=== PATIENT | female | born 1970 | race Caucasian/White ===

== ENCOUNTER 2024-10-30 09:00 | Emergency (ER) | payer OTHER ==
--- OUTSIDE RECORDS SUMMARY | 2024-10-30 09:04 | XMS REPORT | Continuity of Care Document ---
Author Name Unknown Address [address] [facility] [address] [place] [address] [facility] Address [address] [facility] [place] [address] Care Team Providers Care Dyeing Machine Feeder Name Role Phone Irene La Attending Clinician Unavailable GC_GCBZW_Kadiyala_S Attending Clinician Unavaila ble GC_GCBZW_Kadiyala_S Admitting Clinician Unavaila ble Payers Payer Name Policy Type Policy Number Effective Date Expirati on Date Source [facility] [employer] [facility] 53 [id number] [facility] Individual Exchange Benefit Plan [id number] [facility] [id number] [place] [address] [id number] 2020 00:00:00 [facility] Problems Condition Name Condition Details Condition Category Status Onset Date Resolution Date Last Treatment Date Treating Clinician Comments Source Abnormal lateral conjugate gaze Abnormal lateral conjugate gaze Problem [facility] [id number] Gait instabilit y Problem [facility] Hyperglyce francesca due to type 2 diabetes mellitus Type 2 diabetes mellitus with hyperglyce francesca, without long-term current use of insulin Problem [facility] [id number] Vitamin D deficiency Problem [facility] [id number] Mixed hyperlipid emia Problem [facility] [id number] Moderate episode of recurrent major depressive disorder Problem [facility] [id number] Morbid (severe) obesity due to excess calories Problem [facility] [id number] Body mass index [BMI] 45.0-49.9, adult Problem [facility] [id number] Type 2 diabetes mellitus with diabetic polyneurop athy, without long-term current use of insulin Problem [facility] Allergies, Adverse Reactions, Alerts Allergy Name Allergy Type Status Severity Reaction(s) Onset Date Inactive Date Treating Clinician Comments Source Substanc e with 3-hydrox y-3-meth ylglutar yl-coenz yme A reductas e inhibito r mechanis m of action (substan ce) Substanc e with 3-hydrox y-3-meth ylglutar yl-coenz yme A reductas e inhibito r mechanis m of action (substan ce) Active elevated LFTs [facility] Social History Social Habit Start Date Stop Date Quantity Comments Source History of Tobacco Use [facility] Sex Assigned At [facility] Smoking Status Start Date Stop Date Source Former Smoker 2024-10-02 00:00:00 2024-10-02 00:00:00 [facility] Medications Ordered Medication Name Filled Medication Name Start Date Stop Date Current Medication? Ordering Clinician Indication Dosage Frequency Signature (SIG) Comments Components Source Repatha Repatha 2022-09 00:00: 00 No 140mg [facility] Repatha SureClick 140 MG/ML Repatha SureClick 140 MG/ML 2021-09 2- 00:00: 00 03-05 00:00 :00 No Repatha SureClick 140 MG/ML Glucometer n/s Glucometer n/s 2020-09- 00:00: 00 No QD Glucometer n/s metFORMIN HCl ER 750 MG metFORMIN HCl ER 750 MG No BID metFORMIN HCl ER 750 MG Sertraline HCl 100 MG Sertraline HCl 100 MG No QD Sertraline HCl 100 MG Gabapentin 300 MG Gabapentin 300 MG No 1{capsu le} Gabapentin 300 MG Vital Signs Vital Name Observation Time Observation Value Comments S ruperto height 2024-10-06 11:40:00 64 [in_i] Commo n [facility] weight 2024-10-06 11:40:00 246 [lb_av] Comm on [facility] bmi 2024-10-06 11:40:00 42.22 kg/m2 Comm on [facility] height 2024-06-30 12:00:00 64 [in_i] Commo n [facility] weight 2024-06-30 12:00:00 235 [lb_av] Comm on [place] [facility] 2024-06-30 12:00:00 40.33 kg/m2 Comm on [facility] height 2024-06-30 12:00:00 64 [in_i] Commo n [facility] weight 2024-06-30 12:00:00 235 [lb_av] Comm on [facility] bmi 2024-06-30 12:00:00 40.33 kg/m2 Comm on [facility] height 2024-03-24 11:20:00 64 [in_i] Commo n [facility] weight 2024-03-24 11:20:00 224 [lb_av] Comm on [facility] bmi 2024-03-24 11:20:00 38.45 kg/m2 Comm on [facility] height 2024-01-14 08:00:00 64 [in_i] Commo n [facility] weight 2024-01-14 08:00:00 236 [lb_av] Comm on [facility] temperature 2024-01-14 08:00:00 97.1 [degF] Com mon [facility] bmi 2024-01-14 08:00:00 40.5 kg/m2 [facility] oximetry 2024-01-14 08:00:00 97 % [facility] respiratory rate 2024-01-14 08:00:00 16 /min Common [facility] blood pressure systolic 2024-01-14 08:00:00 126 mm[Hg] Common [facility] blood pressure diastolic 2024-01-14 08:00:00 78 mm[Hg] Common [facility] height 2023-12-30 10:00:00 64 [in_i] Commo n [facility] weight 2023-12-30 10:00:00 246 [lb_av] Comm on [facility] bmi 2023-12-30 10:00:00 42.22 kg/m2 Comm on [facility] height 2023-12-10 15:40:00 64 [in_i] Commo n [facility] weight 2023-12-10 15:40:00 248 [lb_av] Comm on [facility] bmi 2023-12-10 15:40:00 42.56 kg/m2 Comm on [facility] height 2023-11-19 08:40:00 64 [in_i] Commo n [facility] weight 2023-11-19 08:40:00 248 [lb_av] Comm on [facility] bmi 2023-11-19 08:40:00 42.56 kg/m2 Comm on [facility] height 2023-09-03 08:20:00 64 [in_i] Commo n [facility] weight 2023-09-03 08:20:00 248 [lb_av] Comm on [facility] temperature 2023-09-03 08:20:00 97.4 [degF] Com mon [facility] bmi 2023-09-03 08:20:00 42.56 kg/m2 Comm on [facility] oximetry 2023-09-03 08:20:00 96 % [facility] respiratory rate 2023-09-03 08:20:00 16 /min [facility] blood pressure systolic 2023-09-03 08:20:00 134 mm[Hg] [facility] blood pressure diastolic 2023-09-03 08:20:00 68 mm[Hg] [facility] height 2023-08-20 08:20:00 64 [in_i] Commo n [facility] weight 2023-08-20 08:20:00 248 [lb_av] Comm on [facility] temperature 2023-08-20 08:20:00 97.5 [degF] Com mon [facility] bmi 2023-08-20 08:20:00 42.56 kg/m2 Comm on [facility] oximetry 2023-08-20 08:20:00 97 % Commo n [facility] respiratory rate 2023-08-20 08:20:00 17 /min [facility] blood pressure systolic 2023-08-20 08:20:00 137 mm[Hg] Common [facility] blood pressure diastolic 2023-08-20 08:20:00 76 mm[Hg] [facility] height 2023-08-14 16:40:00 64 [in_i] Commo n [facility] weight 2023-08-14 16:40:00 248 [lb_av] Comm on [facility] bmi 2023-08-14 16:40:00 42.56 kg/m2 Comm on [facility] height 2023-05-06 09:20:00 64 [in_i] Commo n [facility] weight 2023-05-06 09:20:00 248 [lb_av] Comm on [facility] temperature 2023-05-06 09:20:00 97.5 [degF] Com mon [facility] bmi 2023-05-06 09:20:00 42.56 kg/m2 Comm on [facility] oximetry 2023-05-06 09:20:00 95 % Commo n [facility] respiratory rate 2023-05-06 09:20:00 17 /min [facility] blood pressure systolic 2023-05-06 09:20:00 132 mm[Hg] [facility] blood pressure diastolic 2023-05-06 09:20:00 84 mm[Hg] Common [facility] height 2023-05-02 08:00:00 64 [in_i] Commo n [facility] weight 2023-05-02 08:00:00 248 [lb_av] Comm on [facility] bmi 2023-05-02 08:00:00 42.56 kg/m2 Comm on [facility] height 2023-04-12 10:20:00 64 [in_i] Commo n [facility] weight 2023-04-12 10:20:00 247.2 [lb_av] Co mmon [facility] temperature 2023-04-12 10:20:00 96.5 [degF] Com mon [facility] bmi 2023-04-12 10:20:00 42.43 kg/m2 Comm on [facility] oximetry 2023-04-12 10:20:00 95 % Commo n [facility] respiratory rate 2023-04-12 10:20:00 16 /min [facility] blood pressure systolic 2023-04-12 10:20:00 123 mm[Hg] [facility] blood pressure diastolic 2023-04-12 10:20:00 79 mm[Hg] Common [facility] height 2023-03-12 09:20:00 64 [in_i] Commo n [facility] weight 2023-03-12 09:20:00 245 [lb_av] Comm on [facility] temperature 2023-03-12 09:20:00 97.1 [degF] Com [facility] bmi 2023-03-12 09:20:00 42.05 kg/m2 Comm on [facility] oximetry 2023-03-12 09:20:00 97 % Commo n [facility] respiratory rate 2023-03-12 09:20:00 17 /min Common [facility] blood pressure systolic 2023-03-12 09:20:00 136 mm[Hg] [facility] blood pressure diastolic 2023-03-12 09:20:00 80 mm[Hg] Common [facility] height 2023-01-30 08:00:00 64 [in_i] Commo n [facility] weight 2023-01-30 08:00:00 249 [lb_av] Comm on [facility] temperature 2023-01-30 08:00:00 97.3 [degF] Com [facility] bmi 2023-01-30 08:00:00 42.74 kg/m2 Comm on [facility] oximetry 2023-01-30 08:00:00 96 % Commo n [facility] respiratory rate 2023-01-30 08:00:00 17 /min [facility] blood pressure systolic 2023-01-30 08:00:00 138 mm[Hg] Common [facility] blood pressure diastolic 2023-01-30 08:00:00 82 mm[Hg] [facility] height 2022-11-02 08:00:00 64 [in_i] Commo n [facility] weight 2022-11-02 08:00:00 241.6 [lb_av] Co mmon [facility] temperature 2022-11-02 08:00:00 97.8 [degF] Com mon [facility] bmi 2022-11-02 08:00:00 41.47 kg/m2 Comm on [facility] oximetry 2022-11-02 08:00:00 98 % Commo n [facility] respiratory rate 2022-11-02 08:00:00 17 /min [facility] blood pressure systolic 2022-11-02 08:00:00 132 mm[Hg] [facility] blood pressure diastolic 2022-11-02 08:00:00 76 mm[Hg] Common [facility] height 2022-08-15 16:40:00 64 [in_i] Commo n [facility] weight 2022-08-15 16:40:00 242 [lb_av] Comm on [facility] bmi 2022-08-15 16:40:00 41.53 kg/m2 Comm on [facility] height 2022-04-11 08:20:00 64 [in_i] Commo n [facility] weight 2022-04-11 08:20:00 242 [lb_av] Comm on [facility] temperature 2022-04-11 08:20:00 97.9 [degF] Com mon [facility] bmi 2022-04-11 08:20:00 41.53 kg/m2 Comm on [facility] oximetry 2022-04-11 08:20:00 95 % Commo n [facility] respiratory rate 2022-04-11 08:20:00 17 /min [facility] blood pressure systolic 2022-04-11 08:20:00 128 mm[Hg] Common [facility] blood pressure diastolic 2022-04-11 08:20:00 72 mm[Hg] Common [facility] height 2022-02-21 14:40:00 64 [in_i] Commo n [facility] weight 2022-02-21 14:40:00 246 [lb_av] Comm on [facility] temperature 2022-02-21 14:40:00 97.8 [degF] Com mon [facility] bmi 2022-02-21 14:40:00 42.22 kg/m2 Comm on [facility] oximetry 2022-02-21 14:40:00 92 % Commo n [facility] respiratory rate 2022-02-21 14:40:00 18 /min Common [facility] blood pressure systolic 2022-02-21 14:40:00 136 mm[Hg] [facility] blood pressure diastolic 2022-02-21 14:40:00 82 mm[Hg] [facility] height 2021-11-30 08:40:00 64 [in_i] Commo n [facility] weight 2021-11-30 08:40:00 256.6 [lb_av] Co mmon [facility] temperature 2021-11-30 08:40:00 97.5 [degF] Com mon [facility] bmi 2021-11-30 08:40:00 44.04 kg/m2 Comm on [facility] oximetry 2021-11-30 08:40:00 96 % Commo n [facility] respiratory rate 2021-11-30 08:40:00 18 /min [facility] blood pressure systolic 2021-11-30 08:40:00 119 mm[Hg] [facility] blood pressure diastolic 2021-11-30 08:40:00 52 mm[Hg] Common [facility] height 2021-11-16 08:00:00 64 [in_i] Commo n [facility] weight 2021-11-16 08:00:00 254.2 [lb_av] Co mmon [facility] temperature 2021-11-16 08:00:00 97.9 [degF] Com mon [facility] bmi 2021-11-16 08:00:00 43.63 kg/m2 Comm on [facility] oximetry 2021-11-16 08:00:00 91 % Commo n [facility] respiratory rate 2021-11-16 08:00:00 18 /min [facility] blood pressure systolic 2021-11-16 08:00:00 124 mm[Hg] [facility] blood pressure diastolic 2021-11-16 08:00:00 55 mm[Hg] [facility] Encounters Start Date/Time End Date/Time Encounter Type Admission Type Attending Clinicians Care Facility Care Department Encounter ID Source 2024-10-05 09:48:00 Outpatient La, Irene STLMLC STLMLC [id number] [facility] 2024-10-01 08:11:00 Outpatient La, Irene STLMLC STLMLC [id number] [facility] 2024-06-22 08:47:00 Outpatient La, Irene STLMLC STLMLC [id number] [facility] 2024-01-14 08:12:00 Outpatient La, Irene STLMLC STLMLC [id number] [facility] 2023-05-01 07:39:00 Outpatient La, Irene STLMLC STLMLC [id number] [facility] 2023-04-10 08:12:00 Outpatient La, Irene STLMLC STLMLC [id number] [facility] 2023-03-08 11:39:02 Outpatient La, Irene STLMLC STLMLC [id number] [facility] 2023-01-29 11:23:01 Outpatient La, Irene STLMLC STLMLC [id number] [facility] 2022-11-05 07:57:00 Outpatient LaIrene STEVANLC STLC [id number] [facility] 2022-11-02 07:58:01 Outpatient LaIrene STEVANLC STLMLC [id number] [facility] 2022-10-16 10:44:01 Outpatient LaIrene STEVANLC STLMLC [id number] [facility] 2022-08-14 17:13:01 Outpatient LaIrene STLC STLC [id number] [facility] 2022-08-13 10:10:03 Outpatient LaIrene STLC STLC [id number] [facility] 2022-07-05 10:06:02 Outpatient LaIrene STLC STLC [id number] [facility] 2022-04-12 11:02:02 Outpatient LaIrene STLC STLC [id number] [facility] 2022-04-09 13:07:02 Outpatient LaIrene rosado STLC STLC [id number] [facility] 2021-12-01 11:09:04 Outpatient LaIrene STLC STLC [id number] [facility] 2021-11-16 08:07:03 Outpatient LaIrene STLC STLC [id number] [facility] 2024-10-14 00:00:00 2024-10-14 00:00:00 (TEL) STLMLC STLMLC [id number] [facility] 2024-10-08 00:00:00 2024-10-08 00:00:00 (TEL) STLMLC STLMLC [id number] [facility] 2024-10-07 00:00:00 2024-10-07 00:00:00 (TEL) STLMLC STLMLC [id number] [facility] 2024-10-06 00:00:00 2024-10-06 00:00:00 OFFICE VISIT ESTAB PT LEVEL 4 STLMLC STLMLC [id number] [facility] 2024-10-06 00:00:00 2024-10-06 00:00:00 (TEL) STLMLC STLMLC [id number] [facility] 2024-10-06 00:00:00 2024-10-06 00:00:00 (TEL) STLMLC STLMLC [id number] [facility] 2024-10-06 00:00:00 2024-10-06 00:00:00 (TEL) STLMLC STLMLC [id number] [facility] 2024-07-06 00:00:00 2024-07-06 00:00:00 (TEL) STLMLC STLMLC [id number] [facility] 2024-06-30 00:00:00 2024-06-30 00:00:00 OFFICE VISIT ESTAB PT LEVEL 4 STLMLC STLMLC [id number] [facility] 2024-06-30 00:00:00 2024-06-30 00:00:00 (TEL) STLMLC STLMLC [id number] [facility] 2024-03-24 00:00:00 2024-03-24 00:00:00 OFFICE VISIT ESTAB PT LEVEL 4 STLMLC STLMLC [id number] [facility] 2024-02-26 00:00:00 2024-02-26 00:00:00 (TEL) STLMLC STLMLC [id number] [facility] 2024-01-14 00:00:00 2024-01-14 00:00:00 OFFICE VISIT ESTAB PT LEVEL 4 STLMLC STLMLC [id number] [facility] 2023-12-30 00:00:00 2023-12-30 00:00:00 (TEL) STLMLC STLMLC [id number] [facility] 2023-12-30 00:00:00 2023-12-30 00:00:00 OFFICE VISIT ESTAB PT LEVEL 3 STLMLC STLMLC [id number] [facility] 2023-12-10 00:00:00 2023-12-10 00:00:00 OFFICE VISIT ESTAB PT LEVEL 4 STLMLC STLMLC [id number] [facility] 2023-11-19 00:00:00 2023-11-19 00:00:00 OFFICE VISIT ESTAB PT LEVEL 3 STLMLC STLMLC [id number] [facility] 2023-11-18 00:00:00 2023-11-18 00:00:00 (TEL) STLMLC STLMLC [id number] [facility] 2023-09-03 00:00:00 2023-09-03 00:00:00 OFFICE VISIT ESTAB PT LEVEL 2 STLMLC STLMLC [id number] [facility] 2023-08-21 00:00:00 2023-08-21 00:00:00 Outpatient GC_GCBZW_Ka diyala_S PRIV PRIV [id number] [facility] 2023-08-20 00:00:00 2023-08-20 00:00:00 OFFICE VISIT ESTAB PT LEVEL 2 STLMLC STLMLC [id number] [facility] 2023-08-14 00:00:00 2023-08-14 00:00:00 OFFICE VISIT ESTAB PT LEVEL 4 STLMLC STLMLC [id number] [facility] 2023-07-11 00:00:00 2023-07-11 00:00:00 Outpatient GC_GCBZW_Ka diyala_S PRIV PRIV [id number] [facility] 2023-06-14 00:00:00 2023-06-14 00:00:00 Outpatient GC_GCBZW_Ka diyala_S PRIV PRIV [id number] [facility] 2023-05-06 00:00:00 2023-05-06 00:00:00 OFFICE VISIT ESTAB PT LEVEL 2 STLMLC STLMLC [id number] [facility] 2023-05-02 00:00:00 2023-05-02 00:00:00 OFFICE VISIT ESTAB PT LEVEL 4 STLMLC STLMLC [id number] [facility] 2023-04-25 00:00:00 2023-04-25 00:00:00 Outpatient GC_GCBZW_Ka diyala_S PRIV PRIV [id number] [facility] 2023-04-12 00:00:00 2023-04-12 00:00:00 PREV VISIT EST AGE 40-64 STLMLC STLMLC [id number] [facility] 2023-04-09 00:00:00 2023-04-09 00:00:00 Outpatient GC_GCBZW_Ka diyala_S PRIV PRIV [id number] [facility] 2023-04-09 00:00:00 2023-04-09 00:00:00 Outpatient GC_GCBZW_Ka diyala_S PRIV PRIV [id number] [facility] 2023-04-08 00:00:00 2023-04-08 00:00:00 Outpatient GC_GCBZW_Ka diyala_S PRIV PRIV [id number] [facility] 2023-03-12 00:00:00 2023-03-12 00:00:00 OFFICE VISIT ESTAB PT LEVEL 4 STLMLC STLMLC [id number] [facility] 2023-01-30 00:00:00 2023-01-30 00:00:00 OFFICE VISIT ESTAB PT LEVEL 4 STLMLC STLMLC [id number] [facility] 2023-01-30 00:00:00 2023-01-30 00:00:00 (TEL) STLMLC STLMLC [id number] [facility] 2023-01-30 00:00:00 2023-01-30 00:00:00 (TEL) STLMLC STLMLC [id number] [facility] 2022-11-02 00:00:00 2022-11-02 00:00:00 OFFICE VISIT ESTAB PT LEVEL 4 STLMLC STLMLC [id number] [facility] 2022-10-29 00:00:00 2022-10-29 00:00:00 (TEL) STLMLC STLMLC [id number] [facility] 2022-10-08 00:00:00 2022-10-08 00:00:00 (TEL) STLMLC STLMLC [id number] [facility] 2022-09-04 00:00:00 2022-09-04 00:00:00 (TEL) STLMLC STLMLC [id number] [facility] 2022-08-15 00:00:00 2022-08-15 00:00:00 OFFICE VISIT EST PT LEVEL 3 STLMLC STLMLC [id number] [facility] 2022-04-30 00:00:00 2022-04-30 00:00:00 (TEL) STLMLC STLMLC [id number] [facility] 2022-04-27 00:00:00 2022-04-27 00:00:00 (TEL) STLMLC STLMLC [id number] [facility] 2022-04-11 00:00:00 2022-04-11 00:00:00 (WELLNESS) Wellness Visit STLMLC STLMLC [id number] [facility] 2022-02-21 00:00:00 2022-02-21 00:00:00 OFFICE VISIT ESTAB PT LEVEL 4 STLMLC STLMLC [id number] [facility] 2022-02-21 00:00:00 2022-02-21 00:00:00 (TEL) STLMLC STLMLC [id number] [facility] 2021-11-30 00:00:00 2021-11-30 00:00:00 OFFICE VISIT ESTAB PT LEVEL 4 STLMLC STLMLC [id number] [facility] 2021-11-28 00:00:00 2021-11-28 00:00:00 (TEL) [facility] [id number] [facility] 2021-11-16 00:00:00 2021-11-16 00:00:00 OFFICE VISIT ESTAB PT LEVEL 4 STLMLC STLMLC [id number] [facility] Results Test Description Test Time Test Comments Results Result Co mments Source COMPREHENSIVE METABOLIC [id number] 00:00:00* Test Item Value Reference Range Interpretation Comme nts NUCLEATED RBCS (test code = 62305-9) 0.0 /100 WBC'S See_Comment [Automated message] The system which generated this result transmitted reference range: 0.0 /100 WBC'S. The reference range was not used to interpret this result as normal/abnormal. ABSOLUTE EOSINOPHILS (test code = 20720-6) 0.19 K/UL See_Comment [Automated message] The system which generated this result transmitted reference range: 0.00-0.50 K/UL. The reference range was not used to interpret this result as normal/abnormal. ABSOLUTE LYMPHOCYTES (test code = 52290-7) 2.10 K/UL See_Comment [Automated message] The system which generated this result transmitted reference range: 1.00-4.00 K/UL. The reference range was not used to interpret this result as normal/abnormal. ABSOLUTE MONOCYTES (test code = 78387-4) 0.50 K/UL See_Comment [Automated message] The system which generated this result transmitted reference range: 0.20-1.00 K/UL. The reference range was not used to interpret this result as normal/abnormal. ABSOLUTE NEUTROPHILS (test code = 88487-6) 4.97 K/UL See_Comment [Automated message] The system which generated this result transmitted reference range: 1.50-7.50 K/UL. The reference range was not used to interpret this result as normal/abnormal. BASOPHILS (test code = 24520-9) 0.4 % EOSINOPHILS (test code = 17223-2) 2.4 % HEMATOCRIT (test code = 90455-1) 40.2 % See_Comment [Automated messa ge] The system which generated this result transmitted reference range: 34.0-45.0 %. The reference range was not used to interpret this result as normal/abnormal. HEMOGLOBIN (test code = 718-7) 12.7 G/DL See_Comment [Automated messa ge] The system which generated this result transmitted reference range: 11.5-15.5 G/DL. The reference range was not used to interpret this result as normal/abnormal. LYMPHOCYTES (test code = 63833-9) 26.9 % MCH (test code = 28753-1) 28.0 PG See_Comment [Automated messa ge] The system which generated this result transmitted reference range: 25.0-33.0 PG. The reference range was not used to interpret this result as normal/abnormal. MCHC (test code = 20242-3) 31.6 G/DL See_Comment [Automated messa ge] The system which generated this result transmitted reference range: 31.0-36.0 G/DL. The reference range was not used to interpret this result as normal/abnormal. MCV (test code = 44728-3) 88.5 fL See_Comment [Automated messa ge] The system which generated this result transmitted reference range: 80.0-99.0 fL. The reference range was not used to interpret this result as normal/abnormal. MONOCYTES (test code = 85779-5) 6.4 % NEUTROPHILS (test code = 37896-7) 63.6 % PLATELET COUNT (test code = 71225-1) 192 K/UL See_Comment [Automated messa ge] The system which generated this result transmitted reference range: 130-400 K/UL. The reference range was not used to interpret this result as normal/abnormal. RBC (test code = 51107-3) 4.54 M/UL See_Comment [Automated messa ge] The system which generated this result transmitted reference range: 3.80-5.40 M/UL. The reference range was not used to interpret this result as normal/abnormal. RDW (test code = 82221-9) 13.9 % See_Comment [Automated messa ge] The system which generated this result transmitted reference range: 11.5-15.0 %. The reference range was not used to interpret this result as normal/abnormal. WBC (test code = 00741-4) 7.8 K/UL See_Comment [Automated messa ge] The system which generated this result transmitted reference range: 3.5-11.0 K/UL. The reference range was not used to interpret this result as normal/abnormal. HEMOGLOBIN A1c (test code = 4548-4) 7.2 % See_Comment H [Automated [employer]] The system which generated this result transmitted reference range: 4.2-5.6 %. The reference range was not used to interpret this result as normal/abnormal. VITAMIN D,1,25-DIHYDROXY (test code = 1649-3) 43.6 PG/ML See_Comment [Automated [employer]] The system which generated this result transmitted reference range: 20.0-82.0 PG/ML. The reference range was not used to interpret this result as normal/abnormal. CALC LDL CHOL (test code = 58894-5) 191 MG/DL See_Comment H [Automated [employer]] The system which generated this result transmitted reference range: <100 MG/DL. The reference range was not used to interpret this result as normal/abnormal. CHOLESTEROL (test code = 2093-3) 273 MG/DL See_Comment H [Automated [employer]] The system which generated this result transmitted reference range: <200 MG/DL. The reference range was not used to interpret this result as normal/abnormal. HDL CHOLESTEROL (test code = 2085-9) 46 MG/DL See_Comment [Automated [employer]] The system which generated this result transmitted reference range: >39 MG/DL. The reference range was not used to interpret this result as normal/abnormal. RISK RATIO LDL/HDL (test code = 42542-8) 4.15 RATIO See_Comment H [Automated message] The system which generated this result transmitted reference range: <3.22 RATIO. The reference range was not used to interpret this result as normal/abnormal. TRIGLYCERIDES (test code = 2571-8) 187 MG/DL See_Comment H [Automated [employer]] The system which generated this result transmitted reference range: <150 MG/DL. The reference range was not used to interpret this result as normal/abnormal. ALBUMIN, URINE, RANDOM (test code = 05078-7) 2.2 MG/DL NOT ESTAB MG/DL CALC ALBUMIN/CREAT, RND (test code = 87894-7) 12 MG/G See_Comment [Automated [employer]] The system which generated this result transmitted reference range: <30 MG/G. The reference range was not used to interpret this result as normal/abnormal. CREATININE, URINE, CONC. (test code = 2161-8) 189.1 MG/DL NOT ESTAB MG/DL ALBUMIN (test code = 1751-7) 4.4 G/DL See_Comment [Automated messa ge] The system which generated this result transmitted reference range: 3.5-5.2 G/DL. The reference range was not used to interpret this result as normal/abnormal. ALKALINE PHOSPHATASE (test code = 6768-6) 121 U/L See_Comment [Automated message] The system which generated this result transmitted reference range: 40-133 U/L. The reference range was not used to interpret this result as normal/abnormal. BILIRUBIN, TOTAL (test code = 1975-2) 0.4 MG/DL See_Comment [Automated messa ge] The system which generated this result transmitted reference range: <=1.2 MG/DL. The reference range was not used to interpret this result as normal/abnormal. BUN (test code = 3094-0) 9 MG/DL See_Comment [Automated messa ge] The system which generated this result transmitted reference range: 6-20 MG/DL. The reference range was not used to interpret this result as normal/abnormal. CALCIUM (test code = 82745-6) 9.7 MG/DL See_Comment [Automated messa ge] The system which generated this result transmitted reference range: 8.5-10.5 MG/DL. The reference range was not used to interpret this result as normal/abnormal. CALC A/G RATIO (test code = 1759-0) 1.5 RATIO See_Comment [Automated messa ge] The system which generated this result transmitted reference range: 1.0-2.6 RATIO. The reference range was not used to interpret this result as normal/abnormal. CALC BUN/CREAT (test code = 3097-3) 11 RATIO See_Comment [Automated messa ge] The system which generated this result transmitted reference range: 6-28 RATIO. The reference range was not used to interpret this result as normal/abnormal. CALC GLOBULIN (test code = 16836-3) 2.9 G/DL See_Comment [Automated messa ge] The system which generated this result transmitted reference range: 1.9-3.7 G/DL. The reference range was not used to interpret this result as normal/abnormal. CARBON DIOXIDE (test code = 1963-8) 30 MEQ/L See_Comment [Automated messa ge] The system which generated this result transmitted reference range: 19-31 MEQ/L. The reference range was not used to interpret this result as normal/abnormal. CHLORIDE (test code = 2075-0) 99 MEQ/L See_Comment [Automated messa ge] The system which generated this result transmitted reference range: 95-107 MEQ/L. The reference range was not used to interpret this result as normal/abnormal. CREATININE (test code = 2160-0) 0.80 MG/DL See_Comment [Automated messa ge] The system which generated this result transmitted reference range: 0.60-1.30 MG/DL. The reference range was not used to interpret this result as normal/abnormal. eGFR (2020 CKD-EPI) (test code = 13065-3) 87 ML/MIN/1.73 See_Comment [Automated message] The system which generated this result transmitted reference range: >60 ML/MIN/1.73. The reference range was not used to interpret this result as normal/abnormal. GLUCOSE (test code = 1558-6) 108 MG/DL See_Comment H [Automated messa ge] The system which generated this result transmitted reference range: 70-99 MG/DL. The reference range was not used to interpret this result as normal/abnormal. POTASSIUM (test code = 2823-3) 4.4 MEQ/L See_Comment [Automated messa ge] The system which generated this result transmitted reference range: 3.5-5.4 MEQ/L. The reference range was not used to interpret this result as normal/abnormal. PROTEIN, TOTAL (test code = 2885-2) 7.3 G/DL See_Comment [Automated messa ge] The system which generated this result transmitted reference range: 6.1-8.3 G/DL. The reference range was not used to interpret this result as normal/abnormal. AST (test code = 1920-8) 16 U/L See_Comment [Automated messa ge] The system which generated this result transmitted reference range: 9-40 U/L. The reference range was not used to interpret this result as normal/abnormal. ALT (test code = 1742-6) 15 U/L See_Comment [Automated messa ge] The system which generated this result transmitted reference range: 5-40 U/L. The reference range was not used to interpret this result as normal/abnormal. SODIUM (test code = 2951-2) 140 MEQ/L See_Comment [Automated messa ge] The system which generated this result transmitted reference range: 133-146 MEQ/L. The reference range was not used to interpret this result as normal/abnormal. CBC W/AUTO [id number] 00:00:00* Test Item Value Reference Range Interpretation Comme nts NUCLEATED RBCS (test code = 10724-1) 0.0 /100 WBC'S See_Comment [Automated messa ge] The system which generated this result transmitted reference range: 0.0 /100 WBC'S. The reference range was not used to interpret this result as normal/abnormal. ABSOLUTE EOSINOPHILS (test code = 33781-9) 0.31 K/UL See_Comment [Automated messa ge] The system which generated this result transmitted reference range: 0.00-0.50 K/UL. The reference range was not used to interpret this result as normal/abnormal. ABSOLUTE LYMPHOCYTES (test code = 66462-1) 1.95 K/UL See_Comment [Automated messa ge] The system which generated this result transmitted reference range: 1.00-4.00 K/UL. The reference range was not used to interpret this result as normal/abnormal. ABSOLUTE MONOCYTES (test code = 59443-8) 0.39 K/UL See_Comment [Automated messa ge] The system which generated this result transmitted reference range: 0.20-1.00 K/UL. The reference range was not used to interpret this result as normal/abnormal. ABSOLUTE NEUTROPHILS (test code = 38335-6) 5.16 K/UL See_Comment [Automated messa ge] The system which generated this result transmitted reference range: 1.50-7.50 K/UL. The reference range was not used to interpret this result as normal/abnormal. BASOPHILS (test code = 42878-7) 0.5 % EOSINOPHILS (test code = 88470-1) 3.9 % HEMATOCRIT (test code = 14694-9) 42.6 % See_Comment [Automated messa ge] The system which generated this result transmitted reference range: 34.0-45.0 %. The reference range was not used to interpret this result as normal/abnormal. HEMOGLOBIN (test code = 718-7) 13.4 G/DL See_Comment [Automated messa ge] The system which generated this result transmitted reference range: 11.5-15.5 G/DL. The reference range was not used to interpret this result as normal/abnormal. LYMPHOCYTES (test code = 23461-9) 24.8 % MCH (test code = 55460-6) 27.9 PG See_Comment [Automated messa ge] The system which generated this result transmitted reference range: 25.0-33.0 PG. The reference range was not used to interpret this result as normal/abnormal. MCHC (test code = 96514-0) 31.5 G/DL See_Comment [Automated messa ge] The system which generated this result transmitted reference range: 31.0-36.0 G/DL. The reference range was not used to interpret this result as normal/abnormal. MCV (test code = 27953-2) 88.6 fL See_Comment [Automated messa ge] The system which generated this result transmitted reference range: 80.0-99.0 fL. The reference range was not used to interpret this result as normal/abnormal. MONOCYTES (test code = 39199-1) 5.0 % NEUTROPHILS (test code = 62338-5) 65.5 % PLATELET COUNT (test code = 84921-8) 162 K/UL See_Comment [Automated messa ge] The system which generated this result transmitted reference range: 130-400 K/UL. The reference range was not used to interpret this result as normal/abnormal. RBC (test code = 83619-3) 4.81 M/UL See_Comment [Automated messa ge] The system which generated this result transmitted reference range: 3.80-5.40 M/UL. The reference range was not used to interpret this result as normal/abnormal. RDW (test code = 72502-2) 14.1 % See_Comment [Automated messa ge] The system which generated this result transmitted reference range: 11.5-15.0 %. The reference range was not used to interpret this result as normal/abnormal. WBC (test code = 28673-2) 7.9 K/UL See_Comment [Automated messa ge] The system which generated this result transmitted reference range: 3.5-11.0 K/UL. The reference range was not used to interpret this result as normal/abnormal. HEMOGLOBIN [id number] 00:00:00* Test Item Value Reference Range Interpretation Comme nts A1C (test code = 4548-4) 7.1 CBC W/AUTO [id number] 00:00:00* Test Item Value Reference Range Interpretation Comme nts NUCLEATED RBCS (test code = 14578-9) 0.0 /100 WBC'S See_Comment [Automated messa ge] The system which generated this result transmitted reference range: 0.0 /100 WBC'S. The reference range was not used to interpret this result as normal/abnormal. ABSOLUTE EOSINOPHILS (test code = 58340-4) 0.16 K/UL See_Comment [Automated messa ge] The system which generated this result transmitted reference range: 0.00-0.50 K/UL. The reference range was not used to interpret this result as normal/abnormal. ABSOLUTE LYMPHOCYTES (test code = 35199-4) 1.69 K/UL See_Comment [Automated messa ge] The system which generated this result transmitted reference range: 1.00-4.00 K/UL. The reference range was not used to interpret this result as normal/abnormal. ABSOLUTE MONOCYTES (test code = 60738-8) 0.42 K/UL See_Comment [Automated messa ge] The system which generated this result transmitted reference range: 0.20-1.00 K/UL. The reference range was not used to interpret this result as normal/abnormal. ABSOLUTE NEUTROPHILS (test code = 52119-1) 3.82 K/UL See_Comment [Automated messa ge] The system which generated this result transmitted reference range: 1.50-7.50 K/UL. The reference range was not used to interpret this result as normal/abnormal. BASOPHILS (test code = 97844-7) 0.6 % EOSINOPHILS (test code = 91240-1) 2.6 % HEMATOCRIT (test code = 99331-8) 43.9 % See_Comment [Automated messa ge] The system which generated this result transmitted reference range: 34.0-45.0 %. The reference range was not used to interpret this result as normal/abnormal. HEMOGLOBIN (test code = 718-7) 14.4 G/DL See_Comment [Automated messa ge] The system which generated this result transmitted reference range: 11.5-15.5 G/DL. The reference range was not used to interpret this result as normal/abnormal. LYMPHOCYTES (test code = 76091-3) 27.4 % MCH (test code = 44686-0) 29.1 PG See_Comment [Automated messa ge] The system which generated this result transmitted reference range: 25.0-33.0 PG. The reference range was not used to interpret this result as normal/abnormal. MCHC (test code = 92351-3) 32.8 G/DL See_Comment [Automated messa ge] The system which generated this result transmitted reference range: 31.0-36.0 G/DL. The reference range was not used to interpret this result as normal/abnormal. MCV (test code = 41345-4) 88.7 fL See_Comment [Automated messa ge] The system which generated this result transmitted reference range: 80.0-99.0 fL. The reference range was not used to interpret this result as normal/abnormal. MONOCYTES (test code = 15757-4) 6.8 % NEUTROPHILS (test code = 28536-9) 62.1 % PLATELET COUNT (test code = 52185-5) 168 K/UL See_Comment [Automated messa ge] The system which generated this result transmitted reference range: 130-400 K/UL. The reference range was not used to interpret this result as normal/abnormal. RBC (test code = 39968-6) 4.95 M/UL See_Comment [Automated messa ge] The system which generated this result transmitted reference range: 3.80-5.40 M/UL. The reference range was not used to interpret this result as normal/abnormal. RDW (test code = 62789-3) 13.4 % See_Comment [Automated messa ge] The system which generated this result transmitted reference range: 11.5-15.0 %. The reference range was not used to interpret this result as normal/abnormal. WBC (test code = 90824-6) 6.2 K/UL See_Comment [Automated messa ge] The system which generated this result transmitted reference range: 3.5-11.0 K/UL. The reference range was not used to interpret this result as normal/abnormal. CBC W/AUTO [id number] 00:00:00* Test Item Value Reference Range Interpretation Comme nts NUCLEATED RBCS (test code = 34686-2) 0.0 /100 WBC'S See_Comment [Automated messa ge] The system which generated this result transmitted reference range: 0.0 /100 WBC'S. The reference range was not used to interpret this result as normal/abnormal. ABSOLUTE EOSINOPHILS (test code = 10445-2) 0.16 K/UL See_Comment [Automated messa ge] The system which generated this result transmitted reference range: 0.00-0.50 K/UL. The reference range was not used to interpret this result as normal/abnormal. ABSOLUTE LYMPHOCYTES (test code = 14623-4) 1.65 K/UL See_Comment [Automated messa ge] The system which generated this result transmitted reference range: 1.00-4.00 K/UL. The reference range was not used to interpret this result as normal/abnormal. ABSOLUTE MONOCYTES (test code = 21812-7) 0.40 K/UL See_Comment [Automated messa ge] The system which generated this result transmitted reference range: 0.20-1.00 K/UL. The reference range was not used to interpret this result as normal/abnormal. ABSOLUTE NEUTROPHILS (test code = 46338-7) 3.41 K/UL See_Comment [Automated messa ge] The system which generated this result transmitted reference range: 1.50-7.50 K/UL. The reference range was not used to interpret this result as normal/abnormal. BASOPHILS (test code = 67423-6) 0.9 % EOSINOPHILS (test code = 30641-8) 2.8 % HEMATOCRIT (test code = 96743-3) 42.5 % See_Comment [Automated messa ge] The system which generated this result transmitted reference range: 34.0-45.0 %. The reference range was not used to interpret this result as normal/abnormal. HEMOGLOBIN (test code = 718-7) 14.2 G/DL See_Comment [Automated messa ge] The system which generated this result transmitted reference range: 11.5-15.5 G/DL. The reference range was not used to interpret this result as normal/abnormal. LYMPHOCYTES (test code = 06999-8) 29.0 % MCH (test code = 52809-1) 28.8 PG See_Comment [Automated messa ge] The system which generated this result transmitted reference range: 25.0-33.0 PG. The reference range was not used to interpret this result as normal/abnormal. MCHC (test code = 11424-4) 33.4 G/DL See_Comment [Automated messa ge] The system which generated this result transmitted reference range: 31.0-36.0 G/DL. The reference range was not used to interpret this result as normal/abnormal. MCV (test code = 14011-2) 86.2 fL See_Comment [Automated messa ge] The system which generated this result transmitted reference range: 80.0-99.0 fL. The reference range was not used to interpret this result as normal/abnormal. MONOCYTES (test code = 79574-3) 7.0 % NEUTROPHILS (test code = 94457-5) 59.9 % PLATELET COUNT (test code = 39527-1) 156 K/UL See_Comment [Automated messa ge] The system which generated this result transmitted reference range: 130-400 K/UL. The reference range was not used to interpret this result as normal/abnormal. RBC (test code = 20453-8) 4.93 M/UL See_Comment [Automated messa ge] The system which generated this result transmitted reference range: 3.80-5.40 M/UL. The reference range was not used to interpret this result as normal/abnormal. RDW (test code = 37381-2) 13.8 % See_Comment [Automated messa ge] The system which generated this result transmitted reference range: 11.5-15.0 %. The reference range was not used to interpret this result as normal/abnormal. WBC (test code = 68893-7) 5.7 K/UL See_Comment [Automated messa ge] The system which generated this result transmitted reference range: 3.5-11.0 K/UL. The reference range was not used to interpret this result as normal/abnormal. HEMOGLOBIN [id number] 00:00:00* Test Item Value Reference Range Interpretation Comme nts A1C (test code = 4548-4) 7.7
[2024-10-30 10:00] LABS: Absolute Eosinophils 0.9 K/uL (0-0.5); Absolute Lymphocytes (CBC) 2.3 K/uL (0.7-4.9); Absolute Monocytes 0.6 K/uL (0.1-1.3); Absolute Neutrophil 7.8 K/uL (1.8-8.0); Basophils % 0.3 % (0-1.3); Eosinophils % 7.7 % (0-4.4); Lymphocytes % 19.4 % (15.3-44.8); MCHC 33.3 g/dL (32.0-36.0); MCV 87.1 fL (80-100); MPV 9.6 fL (7.6-11.3); Monocytes % 5.5 % (3.3-12.3); Neutrophils % 67.1 % (41.7-73.7); Nucleated Red Blood Cells % 0.1 % (0-0); Platelets 197 thou/uL (152-406); RBC Red Blood Cell Count 5.16 M/uL (3.86-4.86); Red Cell Distribution Width 14.5 % (12.1-15.2)
--- NOTE | 2024-10-30 10:07 | RAD REPORT ---
EXAMINATION: CT ABDOMEN AND PELVIS WITH CONTRAST CLINICAL INDICATION: Abdominal pain TECHNIQUE: CT abdomen and pelvis was performed, after the administration of 100 cc Isovue-300.. Sagit olga and coronal reconstructions were obtained. One or more of the following dose reduction techniques were used: Automated exposure control, adjustment of the mA and kV according to patient si ze, and iterative reconstruction. Unless otherwise specified, incidental findings do not require dedicated imaging follow-up. [id number]. Oral contrast was not given which limits evaluation of bowel and appendix. COMPARISON: .None FINDINGS: Liver, spleen, pancreas, and adrenals appear unremarkable. Horseshoe kidney. No hydronephrosis No evidence of diverticulitis. Normal appendix. No adnexal mass : IMPRESSION: No acute abnormality displayed
[2024-10-30] MEDS ORDERED: NA CHLORIDE 0.9% 1,000 ML ONE (10:10)
[2024-10-30 10:17] LABS: Albumin 3.6 g/dL (3.4-5.0); Albumin/Globulin Ratio 0.8 (1.1-1.8); Anion Gap 7.6 mEq/L (5.0-15.0); Bilirubin Total 0.6 mg/dL (0.2-1.0); Globulin 4.6 g/dL (2.3-3.5); Potassium 3.6 mEq/L (3.5-5.1); Protein, Total 8.2 g/dL (6.4-8.2)
[2024-10-30 10:30] LABS: Specific Gravity > 1.030 (1.005-1.030)
[2024-10-30 10:32] LABS: Urine Bacteria None Seen /HPF (<20); Urine Bilirubin NEGATIVE (Negative); Urine Blood Negative (Negative); Urine Clarity Clear (Clear); Urine Color Light-Yellow (Yellow); Urine Culture Reflex Order NOT NEEDED; Urine Glucose NEGATIVE (Negative); Urine Ketones NEGATIVE (Negative); Urine Microscopic Reflex YN ORDER UMIC; Urine Mucus Slight /HPF (None Seen); Urine Nitrite NEGATIVE (Negative); Urine Protein TRACE (Negative); Urine RBC <5 /HPF (None Seen); Urine Urobilinogen Normal (Normal); Urine WBC <5 /HPF (<5)
[2024-10-30 10:37] LABS: Specific Gravity > 1.030 (1.005-1.030)
--- NOTE | 2024-10-30 11:02 | EDPHYS ---
Physician Documentation [facility] Name: Shanti Cortez Age: 54 yrs Sex: Female : 1970 Arrival Date: 10/30/2024 Time: 09:00 Bed 14 Private MD: ED Physician Anthony Cheung HPI: 10/30 09:26 This 54 yrs old Female presents to ER via Ambulatory with complaints of Flank Pain - sp3 Right to left. 09:26 54-year-old female with history of hyperlipidemia, diabetes, on Mounjaro now presents sp3 to the ED with diffuse abdominal cramping and mild diarrhea for the last 10 days. Patient called PCP office who referred her to the ED for further evaluation. Patient still has gallbladder and appendix and no significant abdominal surgeries. She denies fever, headache, neck pain, chest pain, shortness of breath, back pain, dysuria, urinary symptoms, CONSTRUCTION MGR symptoms, flank pain, bleeding, rash, known sick contacts, travel history, or any other signs or symptoms on ROS at this time.. Historical: - Allergies: 09:21 No Known Allergies; hb - Home Meds: :21 gabapentin 300 mg oral capsule daily [Active]; Mounjaro 7.5 mg/0.5 mL subcutaneous Pen hb Injector [Active]; metformin 750 mg Oral Tablet, Extended Release 24 hr [Active]; Repatha Syringe 140 mg/mL subcutaneous Syringe every 2 weeks [Active]; - PMHx: 09: DM2; High Cholesterol; hb - PSHx: 09:21 Tonsillectomy; Cataracts; hb - Immunization history:: Adult Immunizations up to date. - Infectious Disease History:: Denies. - Social history:: Smoking status: Patient denies any tobacco usage or history of. ROS: 09:27 Constitutional: Negative for fever, chills, and weight loss, Eyes: Negative for injury, sp3 pain, redness, and discharge, ENT: Negative for injury, pain, and discharge, Neck: Negative for injury, pain, and swelling, Cardiovascular: Negative for chest pain, palpitations, and edema, Respiratory: Negative for shortness of breath, cough, wheezing, and pleuritic chest pain, Back: Negative for injury and pain, MS/Extremity: Negative for injury and deformity, Skin: Negative for injury, rash, and discoloration, Neuro: Negative for headache, weakness, numbness, tingling, and seizure, Psych: Negative for depression, anxiety, suicide ideation, homicidal ideation, and hallucinations, Allergy/Immunology: Negative for hives, rash, and allergies, Endocrine: Negative for neck swelling, polydipsia, polyuria, polyphagia, and marked weight changes, 09:27 All other systems are negative, Exam: 09:27 Constitutional: This is a well developed, well nourished patient who is awake, alert, sp3 and in no acute distress. Head/Face: Normocephalic, atraumatic. Eyes: Pupils equal round and reactive to light, extra-ocular motions intact. Lids and lashes normal. Conjunctiva and sclera are non-icteric and not injected. Cornea within normal limits. Periorbital areas with no swelling, redness, or edema. Neck: Trachea midline, no thyromegaly or masses palpated, and no cervical lymphadenopathy. Supple, full range of motion without nuchal rigidity, or vertebral point tenderness. No Meningismus. Chest/axilla: Normal chest wall appearance and motion. Nontender with no deformity. No lesions are appreciated. Cardiovascular: Regular rate and rhythm with a normal S1 and S2. No gallops, murmurs, or rubs. Normal PMI, no JVD. No pulse deficits. Respiratory: Lungs have equal breath sounds bilaterally, clear to auscultation and percussion. No rales, rhonchi or wheezes noted. No increased work of breathing, no retractions or nasal flaring. Back: No spinal tenderness. No costovertebral tenderness. Full range of motion. Skin: Warm, dry with normal turgor. Normal color with no rashes, no lesions, and no evidence of cellulitis. MS/ Extremity: Pulses equal, no cyanosis. Neurovascular intact. Full, normal range of motion. Neuro: Awake and alert, GCS 15, oriented to person, place, time, and situation. Cranial nerves II-XII grossly intact. Motor strength 5/5 in all extremities. Sensory grossly intact. Cerebellar exam normal. Normal gait. Psych: Awake, alert, with orientation to person, place and time. Behavior, mood, and affect are within normal limits. 09:27 Abdomen/GI: Exam limited secondary to obesity and body habitus. Patient has right-sided abdominal pain to palpation without peritoneal signs, rebound or guarding. Pain appears to be more in the right upper quadrant relative the right lower quadrant., Vital Signs: 09:20 BP 137 / 85; Pulse 78; Resp 16; Temp 97.3(TE); Pulse Ox 100% ; Weight 111.13 kg; Height hb 5 ft. 4 in. ; Pain 10/10; 09:20 Body Mass Index 42.05 (111.13 kg, 162.56 cm) hb 09:20 Pain Scale: Adult hb MDM: 09:14 Medical Screening Exam initiated sp3 09:28 Data reviewed: vital signs, nurses notes, lab test result(s), radiologic studies. ED sp3 course: 54-year-old female with PMH above now with abdominal pain differential diagnosis includes functional abdominal pain, medication induced side effect, biliary pathology including cholecystitis, cholelithiasis/biliary colic, pancreatitis, colitis, pathology, among others. I am not highly suspicious of vascular pathology, sepsis, shock or any other critical process. Workup will include CT scan of the abdomen pelvis with IV contrast, general labs, IV fluids and other supportive care and medications as indicated.. 11:00 ED course: Full workup negative other than a mild increase in LFTs. Will discharge sp3 patient with follow-up to PCP at this time.. 10/30 09:22 Order name: CBC with Diff; Complete Time: 10:13 sp3 10/30 09:22 Order name: CMP; Complete Time: 10:53 sp3 10/30 09:22 Order name: Lipase; Complete Time: 10:53 sp3 10/30 09:22 Order name: Test, Urine; Complete Time: 10:53 sp3 10/30 09:22 Order name: Urinalysis w/ reflexes; Complete Time: 10:53 sp3 10/30 09:22 Order name: CT Abd/Pelvis - IV Contrast Only; Complete Time: 10:13 sp3 10/30 09:22 Order name: IV Saline Lock; Complete Time: 10:24 sp3 10/30 09:22 Order name: Labs collected and sent; Complete Time: 10:24 sp3 Administered Medications: 10:24 Drug: NS 0.9% IV 1000 ml IV at 1 bolus Per protocol; to be given as a bolus over 60 kc6 minutes Route: IV; Rate: 1 bolus; Site: left antecubital; 11:31 Follow up: Response: No adverse reaction; IV Status: Completed infusion; IV Intake: kc6 1000ml Disposition Summary: 10/30/24 11:01 Discharge Ordered Notes: Location: Home sp3 Condition: Stable sp3 Diagnosis - Abdominal pain sp3 Followup: sp3 - With: Private Physician - When: Upon discharge from the Emergency Department - Reason: Continuance of care Discharge Instructions: - Discharge Summary Sheet sp3 - Abdominal Pain, Adult sp3 Forms: - Medication Reconciliation Form sp3 - Antibiotic Education sp3 - Prescription Opioid Use sp3 - Patient Portal Instructions sp3 - Leadership Thank You Letter sp3 Prescriptions: - dicyclomine 10 mg Oral capsule - take 1 capsule ORAL route 3 times per day; 20 capsule; Refills: 0, Product sp3 Selection Permitted Signatures: Dispatcher [employer] Elsa Valentin, RN RN Anthony Cheung MD MD sp3 Mechelle Smith RN RN kc6 Corrections: (The following items were deleted from the chart) 09:24 09:21 PMHx: metfo; hb hb
--- NOTE | 2024-10-30 11:02 | ER ---
Nurse's Notes [facility] Name: Shanti Cortez Age: 54 yrs Sex: Female : 1970 Arrival Date: 10/30/2024 Time: 09:00 Bed 14 Private MD: Diagnosis: Abdominal pain Presentation: 10/30 09:20 Chief complaint: Right sided abdominal pain and intermittent diarrhea x 10 days. hb Coronavirus screen: At this time, the client does not indicate any symptoms associated with coronavirus-19. Ebola Screen: No symptoms or risks identified at this time. Initial Sepsis Screen: Does the patient meet any 2 criteria? No. Patient's initial sepsis screen is negative. Does the patient have a suspected source of infection? No. Patient's initial sepsis screen is negative. Risk Assessment: Do you want to hurt yourself or someone else? Patient reports no desire to harm self or others. Onset of symptoms was October 20, 2024. 09:20 Method Of Arrival: Ambulatory hb 09:20 Acuity: JIA 3 hb Triage Assessment: 09:24 General: Appears in no apparent distress. Behavior is calm, cooperative. Pain: Pain hb currently is 10 out of 10 on a pain scale. Neuro: GCS 15. Historical: - Allergies: 09:21 No Known Allergies; hb - Home Meds: :21 gabapentin 300 mg oral capsule daily [Active]; Mounjaro 7.5 mg/0.5 mL subcutaneous Pen hb Injector [Active]; metformin 750 mg Oral Tablet, Extended Release 24 hr [Active]; Repatha Syringe 140 mg/mL subcutaneous Syringe every 2 weeks [Active]; - PMHx: : DM2; High Cholesterol; hb - PSHx: 09:21 Tonsillectomy; Cataracts; hb - Immunization history:: Adult Immunizations up to date. - Infectious Disease History:: Denies. - Social history:: Smoking status: Patient denies any tobacco usage or history of. Screenin:25 [place] ED Fall Risk Assessment (Adult) History of falling in the last 3 months, kc6 including since admission No falls in past 3 months (0 pts) Confusion or Disorientation No (0 pts) Intoxicated or Sedated No (0 pts) Impaired Gait No (0 pts) Mobility Assist Device Used No (0 pt) Altered Elimination No (0 pt) Score/Fall Risk Level 0 - 2 = Low Risk Oriented to surroundings, Maintained a safe environment, Educated pt \T\ family on fall prevention, incl call for assistance when getting out of bed. Abuse screen: Denies threats or abuse. Denies injuries from another. Nutritional screening: No deficits noted. Tuberculosis screening: No symptoms or risk factors identified. Assessment: 10:25 General: Appears in no apparent distress. comfortable, well groomed, well developed, kc6 Behavior is calm, cooperative, appropriate for age. Pain: Complains of pain in posterior aspect of right lateral abdomen and anterior aspect of right lateral abdomen. Neuro: Level of Consciousness is awake, alert, obeys commands, Oriented to person, place, time, situation, Appropriate for age. Cardiovascular: Capillary refill < 3 seconds. Respiratory: Airway is patent Trachea midline Respiratory effort is even, unlabored, Respiratory pattern is regular, symmetrical. GI: Abdomen is round non-distended, Bowel sounds present X 4 quads. Reports lower abdominal pain, diarrhea, nausea, vomiting. : No signs and/or symptoms were reported regarding the genitourinary system. Urine is clear. EENT: No signs and/or symptoms were reported regarding the EENT system. Derm: No signs and/or symptoms reported regarding the dermatologic system. Skin is intact, is healthy with good turgor, Skin is pink, warm \T\ dry. Musculoskeletal: No signs and/or symptoms reported regarding the musculoskeletal system. Circulation, motion, and sensation intact. Range of motion: intact in all extremities. 11:31 Reassessment: Patient appears in no apparent distress at this time. No changes from kc6 previously documented assessment. Patient and/or family updated on plan of care and expected duration. Pain level reassessed. Patient is alert, oriented x 3, equal unlabored respirations, skin warm/dry/pink. Vital Signs: 09:20 BP 137 / 85; Pulse 78; Resp 16; Temp 97.3(TE); Pulse Ox 100% ; Weight 111.13 kg; Height hb 5 ft. 4 in. ; Pain 10/10; 09:20 Body Mass Index 42.05 (111.13 kg, 162.56 cm) hb 09:20 Pain Scale: Adult hb ED Course: 09:09 Patient arrived in ED. ra3 09:14 Anthony Cheung MD is Attending Physician. sp3 09:21 Triage completed. hb 09:24 Arm band placed on. hb 09:43 CT completed. Patient tolerated procedure well. Note: 22 g diffusics to lt ac and labs sj drawn by [facility] [place]. Patient moved to CT via wheelchair. Patient moved back from CT. 09:48 CT Abd/Pelvis - IV Contrast Only In Process Unspecified. EDMS 10:11 Mechelle Smith, RN is Primary Nurse. kc6 10:24 Initial lab(s) drawn, by nj, sent to lab. Urine collected: clean catch specimen, clear. kc6 Inserted saline lock: 22 gauge in left antecubital area, using aseptic technique. Blood collected. Flushed with 10 mL NS. Patient maintains SpO2 saturation greater than 95% on room air. 10:25 Patient has correct armband on for positive identification. Bed in low position. Call kc6 light in reach. Side rails up X 1. Pulse ox on. NIBP on. Door closed. Noise minimized. Lights dimmed. Pillow given. Administered Medications: 10:24 Drug: NS 0.9% IV 1000 ml IV at 1 bolus Per protocol; to be given as a bolus over 60 kc6 minutes Route: IV; Rate: 1 bolus; Site: left antecubital; 11:31 Follow up: Response: No adverse reaction; IV Status: Completed infusion; IV Intake: kc6 1000ml Intake: 11:31 IV: 1000ml; Total: 1000ml. kc6 Outcome: 11:01 Discharge ordered by . sp3 11:45 Patient left the ED. ll1 Signatures: Dispatcher [employer] EDAK Mercy Ann Heather, RN RN hb Lewis, Lynsay, RN RN ll1 Anthony Cheung MD MD sp3 Mechelle Smith RN RN [facility] Dariana Feliciano 3 Corrections: (The following items were deleted from the chart) 09:24 09:21 PMHx: metfo; hb hb 09:25 09:20 Chief complaint: Right sided abdominal pain x 10 days. hb hb 09:25 09:20 BP 137 / 85; Pulse 78bpm; Resp 16bpm; Pulse Ox 100%; hb hb
[2024-10-30 12:09] VITALS: BP 137/85; TEMP 97.3; O2SAT 100
== END 2024-10-30 11:45 | disposition home or self-care (01) ==
LOC: ER 09:00
DX: R10.31 Right lower quadrant pain (principal); R10.11 Right upper quadrant pain; R19.7 Diarrhea, unspecified; E11.9 Type 2 diabetes mellitus without complications
CPT/HCPCS: 85025; 81001; 36415; 81025; 83690; 80053; 74177; 96360; 99284; Q9967; J7030